=== PATIENT | female | born 1995 | race Caucasian/White ===

== ENCOUNTER 2020-01-15 15:22 | Observation (INO) | payer BC, OTHER, SELFPAY ==
[2020-01-15 15:51] VITALS: BMI 42.2
--- NOTE | 2020-01-15 15:53 | OBADM ---
This patient, Ming Martinez, admitted to the OB room OB Post 117 for observation. Patient/family oriented to hospital policies and general routines including ID bracelet, bed and alarms, visiting hours, pain management, procedures, bathroom and other care routines, personal items, smoking policy, room service/diet, call light, and visiting hours. Patient/Family are encouraged to report perceived risks to care and to ask questions if they do not understand what they are told or what they should do.
[2020-01-15 17:01] LABS: Add Urine Microscopic? YES; Appearance Urine Clear (Clear); Bilirubin Urine Negative (Negative); Blood Urine Negative (Negative); Color Urine Colorless (Yellow); Glucose Urine UA Negative (Negative); Ketones Urine Trace mg/dL (Negative); Leukocyte Esterase Ur Negative LEU/UL (Negative); Nitrate Urine Negative (Negative); Protein Urine Negative (Negative); RBC Urine 0-2 /hpf (0-2); Squamous Epithelial Cell Urine Rare /hpf (Few); Urobilinogen Urine Negative mg/dL (<2.0); WBC Urine 0-3 /hpf
[2020-01-15 17:05] LABS: Specific Grav Ur 1.003 (1.001-1.035)
--- NOTE | 2020-01-16 18:16 | PM.OBTRLD ---
OB - Triage/Final Diagnosis Evaluation Laboratory results: Laboratory Tests 01/15/20 16:53 Urine Color Colorless Urine Appearance Clear Urine pH 7.0 Ur Specific [place] 1.003 Urine Protein Negative Urine Glucose (UA) Negative Urine Ketones Trace Ur Blood (Man) Negative Urine Nitrate Negative Urine Bilirubin Negative Urine Urobilinogen Negative Leukocyte Esterase Rfl Negative Urine RBC 0-2 Urine WBC 0-3 Ur Squamous Epith Cells Rare Final Diagnosis (1) Abdominal cramping affecting , antepartum: Code(s): O26.899 - Other specified related conditions, unspecified trimester; R10.9 - Unspecified abdominal pain Status: Acute
== END 2020-01-15 17:28 | disposition home or self-care (01) ==
PROVIDERS: Admitting Provider Obstetrics & Gynecology; PCP Internal Medicine; Visit Provider Obstetrics & Gynecology
DX: O26.892 Other specified pregnancy related conditions, second trimester (principal); R10.9 Unspecified abdominal pain; Z3A.18 18 weeks gestation of pregnancy
CPT/HCPCS: 81001; 84112; G0378; G0379

== ENCOUNTER 2020-02-25 13:28 | Observation (INO) | payer BC, OTHER, SELFPAY ==
[2020-02-25 14:27] LABS: Add Urine Microscopic? YES; Appearance Urine Cloudy (Clear); Bilirubin Urine Negative (Negative); Blood Urine Negative (Negative); Color Urine Straw (Yellow); Glucose Urine UA Negative (Negative); Ketones Urine Negative (Negative); Leukocyte Esterase Ur 1+ LEU/UL (NEGATIVE); Nitrate Urine Negative (Negative); Protein Urine Negative (Negative); Specific Grav Ur 1.009 (1.001-1.035); Squamous Epithelial Cell Urine Many /hpf (Few); Urobilinogen Urine Negative mg/dL (<2.0); WBC Urine 0-3 /hpf (0-3)
[2020-02-25 14:41] VITALS: BMI 42.2
[2020-02-25 14:46] VITALS: BP 111/57; PULSE 70
[2020-02-25 15:01] VITALS: BP 112/57; PULSE 86
--- NOTE | 2020-02-26 16:24 | PM.OBTRLD ---
OB - Triage/Final Diagnosis Evaluation Laboratory results: Laboratory Tests 02/25/20 14:12 Urine Color Straw Urine Appearance Cloudy H Urine pH 6.0 Ur Specific [place] 1.009 Urine Protein Negative Urine Glucose (UA) Negative Urine Ketones Negative Ur Blood (Man) Negative Urine Nitrate Negative Urine Bilirubin Negative Urine Urobilinogen Negative Ur Leukocyte Esterase 1+ H Urine RBC 3-5 H Urine WBC 0-3 Ur Squamous Epith Cells Many H Final Diagnosis (1) Pelvic pain affecting : Code(s): O26.899 - Other specified related conditions, unspecified trimester; R10.2 - Pelvic and perineal pain Status: Acute
== END 2020-02-25 14:50 | disposition home or self-care (01) ==
LOC: ANHOBPP 13:46
PROVIDERS: Admitting Provider Obstetrics & Gynecology; PCP Internal Medicine; Visit Provider Obstetrics & Gynecology
DX: O26.892 Other specified pregnancy related conditions, second trimester (principal); R10.2 Pelvic and perineal pain; Z3A.23 23 weeks gestation of pregnancy
CPT/HCPCS: 81001; 87086; G0378; G0379

== ENCOUNTER 2020-03-03 06:44 | Observation (INO) | payer BC, OTHER, SELFPAY ==
[2020-03-03] VITALS (23 sets, daily range): BP systolic 108–138; BP diastolic 50–82; PULSE 31–120; TEMP 36.7; O2SAT 88–100; BMI 43.0
--- NOTE | ~2020-03-03 | US_ITS ---
US OB limited 03/03/2020 08:54 Indication: Vaginal bleeding. Evaluate placenta. Procedure: High-resolution Limited obstetrical ultrasound Comparison: No prior studies for comparison. Findings: There is a single living intrauterine in transverse presentation. heart rat e is 157 BPM. Amniotic fluid is subjectively normal. Placenta is anterior and covers the internal cer vical os. Cervical length is 3.8 cm. Impression: 1: Single living intrauterine in transverse presentation. 2: Placenta previa. Anterior placenta. Reviewed, dictated and finalized at location A. ET ASSISTANT Impression: 1: Single living intrauterine in transverse presentation. 2: Placenta previa. Anterior placenta.
--- NOTE | 2020-03-03 07:01 | OBADM ---
This patient, Ming Martinez, admitted to the OB room OB Post 115 for observation. Patient/family oriented to hospital policies and general routines including ID bracelet, bed and alarms, visiting hours, pain management, procedures, bathroom and other care routines, personal items, smoking policy, room service/diet, call light, and visiting hours. Patient/Family are encouraged to report perceived risks to care and to ask questions if they do not understand what they are told or what they should do.
[2020-03-03] MEDS: TERBUTALINE SULFATE 1 MG/ML VIAL 0.25 MG SUB-Q (10:18)
--- NOTE | 2020-03-09 07:17 | PM.OBTRLD ---
OB - Triage/Final Diagnosis Visit Information Comments/Additional reasons for admission: vaginal bleeding/placenta previa
== END 2020-03-03 12:25 | disposition home or self-care (01) ==
PROVIDERS: Admitting Provider Obstetrics & Gynecology; PCP Internal Medicine; Visit Provider Obstetrics & Gynecology
DX: O44.10 Complete placenta previa with hemorrhage, unspecified trimester (principal); Z3A.00 Weeks of gestation of pregnancy not specified
CPT/HCPCS: 76815; 96372; G0378; G0379; J3105

== ENCOUNTER 2020-03-13 07:33 | Observation (INO) | payer BC, SELFPAY ==
[2020-03-13 07:49] VITALS: BP 116/71; PULSE 86
[2020-03-13 08:01] VITALS: BP 117/74; PULSE 84
--- NOTE | 2020-03-13 18:32 | PM.OBTRLD ---
OB - Triage/Final Diagnosis Evaluation Vital signs: Vital Signs - 24 hr 03/13/20 07:49 03/13/20 08:01 Pulse Rate 86 84 Blood Pressure 116/71 117/74 Final Diagnosis (1) Placenta previa: Code(s): O44.00 - Complete placenta previa NOS or without hemorrhage, unspecified trimester Status: Acute
== END 2020-03-13 11:31 | disposition home or self-care (01) ==
PROVIDERS: Admitting Provider Obstetrics & Gynecology; PCP Internal Medicine; Visit Provider Obstetrics & Gynecology
DX: O44.00 Complete placenta previa NOS or without hemorrhage, unspecified trimester (principal); Z3A.00 Weeks of gestation of pregnancy not specified
CPT/HCPCS: G0378; G0379

== ENCOUNTER 2020-05-07 09:35 | Observation (INO) | payer BC, SELFPAY ==
--- NOTE | ~2020-05-07 | US_ITS ---
EXAMINATION: US OB BPP wo non-stress EXAM DATE: 05/07/2020 09:38 INDICATION: Placenta previa, gestational hypertension. Physical profile. 3rd trimester. TECHNIQUE: Pelvic obstetrical transabdominal sonogram was performed by a technologist. There are mu ltiple grayscale and Doppler images available for interpretation. Comparison is made to prior examina tion from 03/03/2020. FINDINGS: There is a single fetus identified in vertex presentation with a heart rate of 154 beats p er minute. The placenta is located in the anterior position, appears to have grown away from the inte rnal cervical os but internal cervical os, cervical canal were poorly visualized. There is no sonogra phic evidence of retroplacental hemorrhage identified. There is subjectively expected amount of amni otic fluid. BIOPHYSICAL PROFILE (performed by the technologist) breathing (30 sec sustained breathing in 30 minutes): 2 out of 2 movement (3 gross body movements in 30 minutes): 2 out of 2 tone (one episode of jxzavnz-csxlerfbw-qisweky limb movement): 2 out of 2 Amniotic fluid pocket (2 cm): 2 out of 2 Total score: 8 out of 8. IMPRESSION: 1. Single fetus with heart rate of 154 bpm. 2. Normal biophysical profile score of 8 out of 8. 3. Anteriorly located placenta. Reviewed, dictated and finalized at location A. ING METER ATTENDANT
[2020-05-07] MEDS: NIFEdipine 10 MG CAPSULE PO (09:50)
--- NOTE | 2020-05-07 17:08 | OBADM ---
This patient, Ming Martinez, admitted to the OB room Labor/Delivery/Recovery 118 for observation. Patient/family oriented to hospital policies and general routines including ID bracelet, bed and alarms, visiting hours, pain management, procedures, bathroom and other care routines, personal items, smoking policy, room service/diet, and visiting hours. Patient/Family are encouraged to report perceived risks to care and to ask questions if they do not understand what they are told or what they should do.
--- NOTE | 2020-05-17 09:42 | PM.OBTRLD ---
OB - Triage/Final Diagnosis Visit Information Comments/Additional reasons for admission: I have assessed the risk for this patient, Ming Alcantara Juan, and determined that she would benefit from observation care. Final Diagnosis (1) Vaginal bleeding during : Code(s): O46.90 - Antepartum hemorrhage, unspecified, unspecified trimester Status: Acute
== END 2020-05-07 12:40 | disposition home or self-care (01) ==
PROVIDERS: Admitting Provider Obstetrics & Gynecology; PCP Internal Medicine; Visit Provider Obstetrics & Gynecology
DX: O46.93 Antepartum hemorrhage, unspecified, third trimester (principal); Z3A.33 33 weeks gestation of pregnancy
CPT/HCPCS: 76819; A9270; G0378; G0379

== ENCOUNTER 2020-05-07 20:38 | Observation (INO) | payer BC, SELFPAY ==
[2020-05-07] VITALS (8 sets, daily range): BP systolic 116–143; BP diastolic 69–82; PULSE 93–121; TEMP 36.9
--- NOTE | 2020-05-07 20:45 | PC.NURSE ---
Pt has pad noted with apprx 1inc by 1/2 area of blood noted.
--- NOTE | 2020-05-07 20:57 | PC.NURSE ---
Addendum entered by Angel George RN 05/07/20 22:04: Dr Judge notified of pt and assessment. Coming in to see pt. Original Note:
--- NOTE | 2020-05-07 21:05 | PC.NURSE ---
Dr. Judge here.
--- NOTE | 2020-05-07 21:25 | PM.IMHP ---
H&P: HPI History of Present Illness Date/Time: 05/07/20 21:25 Chief Complaint: vaginal bleeding Narrative: Ming Martinez is a 24 yo @ 33.4wks who presented to L&D w/ her largest vaginal bleed since being diagnosed with placenta previa. She reports at 2014 she noted that the toilet was full of bright blood. She presented to L&D w/ ~7-10cc of blood on her pad as well as her upper thighs and labia. heart tones were reassuring and no active bleeding was noted. This is her 5th bleed. She has been admitted to [facility] multiple times; most recently 04/14/20 - 05/03/20. She underwent NST/BPP today and was found to be having mild contractions; did not feel them. Procardia 10mg q8h was started and they subsided. Her is complicated by: - Placenta previa w/ hemorrhage and multiple antepartum admissions; s/p 2 rounds of ANCS - GHTN - Varicella and rubella non-immune Review of Systems Constitutional: Constitutional: Denies fever(s) Eyes: Eyes: Denies blurry vision Cardiovascular: Cardiovascular: Denies chest pain and Denies palpitations Respiratory: Respiratory: Denies cough and Denies dyspnea Gastrointestinal: Gastrointestinal: Denies abdominal pain Genitourinary: Genitourinary: Reports abnormal vaginal bleeding Neurologic: Denies dizziness and Denies headache(s) Meds Home Medications and Allergies Home Medications Medication Instructions Recorded Confirmed Type nifedipine [Procardia] 10 mg PO Q8H 20 Days #60 cap 05/07/20 Rx Allergies Allergy/AdvReac Type Severity Reaction Status Date / Time No Known Allergies Allergy Unverified 08/02/18 14:33 Vital Signs Vital Signs - 24 hr 05/07/20 20:44 05/07/20 20:46 05/07/20 21:00 Pulse Rate 119 H 121 H 111 H Blood Pressure 127/76 123/72 116/69 Exam Const: General: cooperative, healthy appearing and comfortable Resp: Effort & Inspection: normal respiratory effort Cardio: Rate: regular rate : Other: ~7-10cc of blood on pad; upper thighs and labia with blood FHT's: 140's/ mod daniella/ no accels/ no decels - cat 1 TOCO: uterine irritability Skin: General skin exam: normal color Neuro: General: patient oriented x3 Psych: Appearance: grossly normal Affect: normal affect Attitude: cooperative Assessment and Plan Assessment and plan (1) Placenta previa in third trimester: Code(s): O44.03 - Complete placenta previa NOS or without hemorrhage, third trimester Status: Acute (2) Vaginal bleeding during : Code(s): O46.90 - Antepartum hemorrhage, unspecified, unspecified trimester Status: Acute (3) Gestational hypertension: Qualifiers: Trimester: third trimester Qualified Code(s): O13.3 - Gestational [-induced] hypertension without significant proteinuria, third trimester Code(s): O13.9 - Gestational [-induced] hypertension without significant proteinuria, unspecified trimester Status: Acute Additional Plan - Pt w/ 5th large bleeding; not actively bleeding, heart tones reassuring, no raina - IV placed w/ fluids running; labs sent but pending (CBC, coags, fibrinogen). Pt is Rh positive. - [facility] Maternal transport team called at 2114 -- patient presented and accepted to transfer @ 2119 - Maternal transport team to transport pt to [facility]; ETA ~30min; pt agrees to transfer. All paperwork signed. All questions answered. - Pt is s/p 2 rounds of ANCS
[2020-05-07 21:35] LABS: Basophils Absolute Auto 0.1 K/mm3 (0.0-0.1); Basophils Percent Auto 0.4 % (0.2-1.2); Eosinophils Absolute Auto 0.4 K/mm3 (0-0.3); Eosinophils Percent Auto 3.2 % (0-4.4); Hematocrit 38.6 % (37.0-47.0); Immature Granulocyte Percent A 0.9 % (0-0.5); Lymphocytes Absolute Auto 2.81 K/mm3 (0.9-3.2); Lymphocytes Percent Auto 24.4 % (18.3-44.2); Mean Corpuscular HGB Conc 33.7 g/dl (32-36); Mean Corpuscular Hemoglobin 31.2 pg (26-34); Mean Corpuscular Volume 92.6 fl (80-100); Mean Platelet Volume 10.9 fl (7.4-10.4); Monocytes Absolute Auto 0.9 K/mm3 (0.1-0.6); Monocytes Percent Auto 7.5 % (2.6-8.5); Neutrophils Absolute Auto 7.3 K/mm3 (1.3-6.7); Neutrophils Percent Auto 63.6 % (45.5-73.1); Platelet Count Result 235 k/mm3 (150-375); Red Blood Count 4.17 M/mm3 (4.2-5.4); Red Cell Distribution Width 13.2 % (11.5-14.5); White Blood Count 11.5 K/mm3 (4.5-10.0)
--- NOTE | 2020-05-07 21:40 | WPDHPUPDATE1 ---
History and Physical Update Update Date/Time: 05/07/20 21:40 History and Physical has been reviewed, including an updated exam of the patient. There are NO changes in the patient's condition. Risks, benefits, and alternatives have been discussed and questions answered. Patient agrees to proceed with procedure.
[2020-05-07] MEDS: LACTATED RINGERS 1,000 ML 125 ML IV CONT (21:49)
[2020-05-07 21:56] LABS: Fibrinogen 368 mg/dl (215-510); INR 0.9; Partial Thromboplastin Time 29.3 SECONDS (22.3-36.8); Prothrombin Time 12.5 Seconds (11.1-14.7)
[2020-05-07 21:58] LABS: D Dimer 0.92 ug/mL (<0.48)
--- NOTE | 2020-05-07 21:59 | OBADM ---
This patient, Ming Martinez, admitted to the OB room OB Post 117 for observation. Patient/family oriented to hospital policies and general routines including ID bracelet, bed and alarms, visiting hours, pain management, procedures, bathroom and other care routines, personal items, smoking policy, room service/diet, and visiting hours. Patient/Family are encouraged to report perceived risks to care and to ask questions if they do not understand what they are told or what they should do.
--- NOTE | 2020-05-07 22:02 | PC.NURSE ---
Addendum entered by Angel George RN 05/07/20 22:03: TIME NOTE 2039 Original Note: Patient has hx of placenta previa. Discharged from [facility] this week after 6 week stay. Pt noted bright red vaginal bleeding approx 10 minutes ago while using bathroom.
--- NOTE | 2020-05-07 22:10 | PC.NURSE ---
To [place] per transport team. Report to [facility] at [phone]
== END 2020-05-07 22:10 | disposition short-term general hospital (02) ==
PROVIDERS: Admitting Provider Obstetrics & Gynecology; PCP Internal Medicine; Visit Provider Obstetrics & Gynecology
DX: O44.13 Complete placenta previa with hemorrhage, third trimester (principal); O13.3 Gestational [pregnancy-induced] hypertension without significant proteinuria, third trimester; Z3A.33 33 weeks gestation of pregnancy
CPT/HCPCS: 36415; 85025; 85380; 85384; 85610; 85730; G0378; G0379; J7120

== ENCOUNTER 2020-05-14 07:17 | Outpatient (RCR) | payer BC, SELFPAY ==
[2020-05-10 09:36] VITALS: BP 125/69; PULSE 78
--- NOTE | ~2020-05-14 | US_ITS ---
EXAMINATION: US OB BPP wo non-stress EXAM DATE: 05/10/2020 08:45 INDICATION: Nonreactive stress test. 3rd trimester. TECHNIQUE: Pelvic obstetrical transabdominal sonogram was performed by a technologist. There are mu ltiple grayscale and Doppler images available for interpretation. There are no earlier studies of th is gestation for comparison. FINDINGS: There is a single fetus identified in vertex presentation with a heart rate of 152 beats pe r minute. The placenta is located in the anterior position. There is no sonographic evidence of retr oplacental hemorrhage identified. BIOPHYSICAL PROFILE (performed by the technologist) breathing (30 sec sustained breathing in 30 minutes): 2 out of 2 movement (3 gross body movements in 30 minutes): 2 out of 2 tone (one episode of rgiqyvs-dnwlzghnp-rasbxqr limb movement): 2 out of 2 Amniotic fluid pocket (2 cm): 2 out of 2 Total score: 8 out of 8 IMPRESSION: 1. Single fetus with heart rate of 152 bpm. 2. Normal biophysical profile score of 8 out of 8. Reviewed, dictated and finalized at location B. TENANCE CARPENTER
--- NOTE | ~2020-05-14 | US_ITS ---
US OB BPP wo non-stress DATE: 05/14/2020 08:34 INDICATION: Nonreactive stress test TECHNIQUE: Real-time imaging and Doppler analysis COMPARISON: May 10, 2020 obstetrical ultrasound with biophysical profile FINDINGS: Life limited due to stage, fetus in vertex presentation, longitudinal lie. Anterior placenta heart rate of 157 bpm. No retroplacental hemorrhage is noted. A 5 cm deep amniotic fluid pocket is identified in the right lower quadrant. Subjectively low or low normal amniotic fluid volume is suggested on the provided images. BIOPHYSICAL PROFILE reported by refresh technician: breathin out of 2 movement: 2 out of 2 tone: 2 out of 2 Amniotic fluid pocket: 2 out of 2 Total score: 8 out of 8 IMPRESSION: Normal biophysical profile score of 8 out of 8 Subjectively low or low normal amniotic fluid volume is suggested. Reviewed, dictated and finalized at Location A. Reviewed, dictated and finalized at location A. PLANT SPECIALIST
== END 2020-06-22 07:58 | disposition home or self-care (01) ==
LOC: ANHOBOP 07:17
PROVIDERS: PCP Internal Medicine; Visit Provider Obstetrics & Gynecology
DX: O16.3 Unspecified maternal hypertension, third trimester (principal); O44.03 Complete placenta previa NOS or without hemorrhage, third trimester; Z3A.34 34 weeks gestation of pregnancy
CPT/HCPCS: 59025; 76819

== ENCOUNTER 2020-05-16 16:48 | Observation (INO) | payer BC, SELFPAY ==
[2020-05-16] VITALS (97 sets, daily range): BP systolic 116–159; BP diastolic 64–97; PULSE 73–141; RESP 24; TEMP 36.5–36.8; O2SAT 94–100; BMI 45.2
--- NOTE | ~2020-05-16 | US_ITS ---
EXAMINATION: US OB BPP wo non-stress DATE: 05/17/2020 08:07 INDICATION: Placenta previa. TECHNIQUE: Real-time pelvic ultrasound was performed. COMPARISON: Ultrasound 05/14/2020 FINDINGS: There is a single living fetus in vertex presentation. The placenta is anterior. There was no placen ta previa on the prior ultrasound. heart rate is 155 beats per minute (bpm). Biophysical profile performed by the technologist: breathing (30 sec sustained breathing in 30 minutes): 2 out of 2 movement (3 gross body movements in 30 minutes): 2 out of 2 tone (one episode of udsaxhc-xcdrzejil-uyrqvju limb movement): 2 out of 2 Amniotic fluid pocket (2 cm): 2 out of 2 Total score: 8 out of 8 IMPRESSION: 1. Single living fetus in vertex presentation. 2. Biophysical profile 8 out of 8. Reviewed, dictated and finalized at location A. ENT SERVICES ADVISOR
[2020-05-16] MEDS: LACTATED RINGERS 1,000 ML 100 ML IV CONT (18:50)
--- NOTE | 2020-05-16 18:50 | OBADM ---
This patient, Ming Martinez, admitted to the OB room Labor/Delivery/Recovery 119 for observation. Patient/family oriented to hospital policies and general routines including ID bracelet, bed and alarms, visiting hours, pain management, procedures, bathroom and other care routines, personal items, smoking policy, room service/diet, and visiting hours. Patient/Family are encouraged to report perceived risks to care and to ask questions if they do not understand what they are told or what they should do.
[2020-05-16 19:22] LABS: Basophils Absolute Auto 0.1 K/mm3 (0.0-0.1); Basophils Percent Auto 0.4 % (0.2-1.2); Eosinophils Absolute Auto 0.5 K/mm3 (0-0.3); Eosinophils Percent Auto 2.8 % (0-4.4); Hematocrit 39.1 % (37.0-47.0); Hemoglobin 13.1 g/dL (12.0-15.0); Immature Granulocyte Absolute 0.11 K/mm3 (0.00-0.031); Immature Granulocyte Percent A 0.7 % (0-0.5); Lymphocytes Absolute Auto 2.86 K/mm3 (0.9-3.2); Lymphocytes Percent Auto 17.3 % (18.3-44.2); Mean Corpuscular HGB Conc 33.5 g/dl (32-36); Mean Corpuscular Hemoglobin 31.1 pg (26-34); Mean Corpuscular Volume 92.9 fl (80-100); Mean Platelet Volume 11.7 fl (7.4-10.4); Monocytes Absolute Auto 0.9 K/mm3 (0.1-0.6); Monocytes Percent Auto 5.4 % (2.6-8.5); Neutrophils Absolute Auto 12.1 K/mm3 (1.3-6.7); Neutrophils Percent Auto 73.4 % (45.5-73.1); Platelet Count Result 231 k/mm3 (150-375); Red Blood Count 4.21 M/mm3 (4.2-5.4); Red Cell Distribution Width 13.4 % (11.5-14.5); White Blood Count 16.5 K/mm3 (4.5-10.0)
[2020-05-16] MEDS: ALBUTEROL SULFATE (*SP) AEROSOL 1 PUFF 2 PUFF INHALATION (19:24)
--- NOTE | 2020-05-16 20:04 | PM.OBTRLD ---
OB - Triage/Final Diagnosis Visit Information Comments/Additional reasons for admission: I have assessed the risk for this patient, Ming Martinez, and determined that she would benefit from observation care. 24yo at 34w6d Initially presented to triage with leaking of fluid with coughs. Negative ROM+. Was noted to be contacting. Every 2-3 minutes, described as 4-5/10 on pain scale. has been complicated with vaginal bleeding and placenta previa. Last US on 05/04 showed that placenta previa had resolved. Last bleeding episode was 05/07. She was hospitalized at [facility] 05/07-05/09. Cervix was 2-3cm per patient. Today, bedside transabdominal US shows anterior placenta. Cervical exam . FHR monitoring shows baseline of 150, moderate variability, occasional variable decels but overall reassuring. Contractions every 3 minutes. Will keep overnight for monitoring. Evaluation Laboratory results: Laboratory Tests 05/16/20 18:41 WBC 16.5 H RBC 4.21 Hgb 13.1 Hct 39.1 MCV 92.9 MCH 31.1 MCHC 33.5 RDW 13.4 Plt Count 231 MPV 11.7 H Immature Gran % (Auto) 0.7 H Neut % (Auto) 73.4 H Lymph % (Auto) 17.3 L [place] % (Auto) 5.4 Eos % (Auto) 2.8 Baso % (Auto) 0.4 Lymph # (Auto) 2.86 [place] # (Auto) 0.9 H Eos # (Auto) 0.5 H Baso # (Auto) 0.1 Abs Immat Gran (auto) 0.11 H Absolute Neuts (auto) 12.1 H Absolute Nucleated RBC 0.0 Nucleated RBC % 0.0 Vital signs: Vital Signs - 24 hr 05/16/20 17:11 05/16/20 17:16 05/16/20 17:31 Temperature Pulse Rate 128 H 120 H 114 H Blood Pressure 153/97 H 154/83 H 131/72 Pulse Oximetry 05/16/20 17:37 05/16/20 17:42 05/16/20 17:46 Temperature Pulse Rate 112 H Blood Pressure 147/83 H Pulse Oximetry 98 97 05/16/20 17:47 05/16/20 17:52 05/16/20 17:57 Temperature Pulse Rate Blood Pressure Pulse Oximetry 100 100 98 05/16/20 18:00 05/16/20 18:01 05/16/20 18:02 Temperature 36.8 C Pulse Rate 101 H Blood Pressure 159/82 H Pulse Oximetry 97 05/16/20 18:07 05/16/20 18:12 05/16/20 18:17 Temperature Pulse Rate Blood Pressure Pulse Oximetry 98 98 96 05/16/20 18:22 05/16/20 18:27 05/16/20 18:32 Temperature Pulse Rate Blood Pressure Pulse Oximetry 98 98 98 05/16/20 18:34 05/16/20 18:39 05/16/20 18:53 Temperature Pulse Rate Blood Pressure Pulse Oximetry 97 98 95 05/16/20 18:54 05/16/20 18:58 05/16/20 19:01 Temperature Pulse Rate 131 H 123 H Blood Pressure 138/68 130/74 Pulse Oximetry 96 05/16/20 19:03 05/16/20 19:08 05/16/20 19:13 Temperature Pulse Rate Blood Pressure Pulse Oximetry 95 95 97 05/16/20 19:16 05/16/20 19:18 05/16/20 19:23 Temperature Pulse Rate 112 H Blood Pressure 133/90 Pulse Oximetry 96 94 05/16/20 19:28 05/16/20 19:31 05/16/20 19:33 Temperature Pulse Rate 113 H Blood Pressure 142/83 H Pulse Oximetry 100 97 05/16/20 19:38 05/16/20 19:43 05/16/20 19:46 Temperature Pulse Rate 125 H Blood Pressure 143/86 H Pulse Oximetry 95 97 05/16/20 19:48 05/16/20 19:53 05/16/20 19:58 Temperature Pulse Rate Blood Pressure Pulse Oximetry 96 96 98 05/16/20 20:01 05/16/20 20:03 Temperature Pulse Rate 119 H Blood Pressure 141/72 H Pulse Oximetry 98 Final Diagnosis (1) Gestational hypertension: Qualifiers: Trimester: third trimester Qualified Code(s): O13.3 - Gestational [-induced] hypertension without significant proteinuria, third trimester Code(s): O13.9 - Gestational [-induced] hypertension without significant proteinuria, unspecified trimester Status: Acute (2) contractions: Code(s): O47.9 - False labor, unspecified Status: Acute
[2020-05-16 20:10] LABS: HIV 1/2 Ab P24 Ag Result Negative (Negative)
[2020-05-16] MEDS: FAMOTIDINE 20 MG TABLET PO (22:16)
[2020-05-16] MEDS: ALBUTEROL SULFATE NEB 2.5 MG/0.5 ML INH INHALATION (23:25)
[2020-05-17] VITALS (95 sets, daily range): BP systolic 108–126; BP diastolic 48–82; PULSE 51–124; RESP 20; TEMP 36.1; O2SAT 92–100
[2020-05-17] MEDS: LACTATED RINGERS 1,000 ML 100 ML IV CONT (00:35)
[2020-05-17] MEDS: ALBUTEROL SULFATE NEB 2.5 MG/0.5 ML INH INHALATION (08:40)
[2020-05-17 09:12] LABS: Rapid Plasma Reagin Non-Reactive (NonReactive)
[2020-05-17 18:28] LABS: SARS-CoV-2 RNA PCR Negative
== END 2020-05-17 09:14 | disposition home or self-care (01) ==
LOC: ANHLDR 16:53 → ANHOBPP 20:07
PROVIDERS: Admitting Provider Obstetrics & Gynecology; PCP Internal Medicine; Visit Provider Obstetrics & Gynecology
DX: O13.3 Gestational [pregnancy-induced] hypertension without significant proteinuria, third trimester (principal); O47.9 False labor, unspecified; Z3A.34 34 weeks gestation of pregnancy; Z20.822 Contact with and (suspected) exposure to COVID-19
CPT/HCPCS: 36415; 76819; 84112; 85025; 86592; 86703; 86850; 86900; 86901; 94640; 96360; 96361; A9270; C9803; G0378; G0379; G0432; J7120; U0003; U0005

== ENCOUNTER 2020-05-19 09:07 | Inpatient (IN) | payer BC, SELFPAY ==
[2020-05-19] VITALS (57 sets, daily range): BP systolic 99–147; BP diastolic 17–97; PULSE 46–113; RESP 11–21; TEMP 36.1–36.4; O2SAT 88–100; BMI 44.7
[2020-05-19 09:54] LABS: Basophils Absolute Auto 0.1 K/mm3 (0.0-0.1); Basophils Percent Auto 0.5 % (0.2-1.2); Eosinophils Absolute Auto 0.6 K/mm3 (0-0.3); Eosinophils Percent Auto 5.5 % (0-4.4); Hemoglobin 13.3 g/dL (12.0-15.0); Immature Granulocyte Absolute 0.11 K/mm3 (0.00-0.031); Immature Granulocyte Percent A 0.9 % (0-0.5); Lymphocytes Absolute Auto 2.47 K/mm3 (0.9-3.2); Lymphocytes Percent Auto 21.3 % (18.3-44.2); Mean Corpuscular HGB Conc 33.3 g/dl (32-36); Mean Corpuscular Hemoglobin 30.9 pg (26-34); Mean Platelet Volume 11.1 fl (7.4-10.4); Monocytes Absolute Auto 0.8 K/mm3 (0.1-0.6); Monocytes Percent Auto 6.6 % (2.6-8.5); Neutrophils Absolute Auto 7.6 K/mm3 (1.3-6.7); Neutrophils Percent Auto 65.2 % (45.5-73.1); Platelet Count Result 211 k/mm3 (150-375); Red Cell Distribution Width 13.5 % (11.5-14.5); White Blood Count 11.6 K/mm3 (4.5-10.0)
[2020-05-19] MEDS: LACTATED RINGERS 1,000 ML 125 ML IV CONT (09:56)
[2020-05-19 10:05] LABS: Uric Acid 4.6 mg/dL (2.5-7.5)
[2020-05-19 10:51] LABS: Alanine Aminotransferase 36 U/L (4-35); Albumin Level 3.6 g/dL (3.5-5.1); Alkaline Phosphatase 222 U/L (38-126); Anion Gap 5 mmol/L (8-16); Aspartate Amino Transferase 37 U/L (14-36); Bilirubin,Total 0.2 mg/dL (0.2-1.3); Blood Urea Nitrogen 4 mg/dL (7-17); Calcium 8.9 mg/dL (8.4-10.2); Carbon Dioxide 23 mmol/L (22-30); Chloride 109 mmol/L (98-107); Estimated CRCL calculation 159 ml/min; Estimated Glomerular Filt Rate > 60; Glucose 88 mg/dL (65-105); Potassium 3.6 mmol/L (3.4-5.0); Sodium 137 mmol/L (137-145)
[2020-05-19 12:09] LABS: Rapid Plasma Reagin Non-Reactive (NonReactive)
--- NOTE | 2020-05-19 12:18 | WPDANESEPPF ---
Anes - Initial Pre Proc Eval Procedure: Operation Date: 05/19/20 12:30 Proposed Procedures p Primary Section - Marianela Judge MD Date/Time: 05/19/20 12:18 Surgeon: Marianela Judge MD Pre Op Diagnosis: Section Patient Data Age: 24 Gender: F Height: 1.52 m Weight: 104 kg Last Vital Signs Pulse 101 H 05/19/20 10:46 BP 116/68 05/19/20 10:46 Allergies Allergy/AdvReac Type Severity Reaction Status Date / Time No Known Allergies Allergy Unverified 08/02/18 14:33 Home Medications Medication Instructions Recorded Confirmed Type famotidine 20 mg PO BID 05/16/20 05/19/20 History ferrous sulfate 27 mg PO DAILY 05/16/20 05/19/20 History prenat.vits,hima,ips-czlx-mbzet 1 tablet PO DAILY 05/16/20 05/19/20 History albuterol sulfate [Proventil HFA] 2 puff INHALATION Q6HRT PRN #1 inh 05/17/20 05/19/20 Rx Laboratory Tests 05/19/20 05/19/20 05/19/20 09:47 09:47 09:47 WBC 11.6 K/mm3 H K/mm3 (4.5-10.0) RBC 4.30 M/mm3 M/mm3 (4.2-5.4) Hgb 13.3 g/dL g/dL (12.0-15.0) Hct 40.0 % % (37.0-47.0) MCV 93.0 fl fl (80-100) MCH 30.9 pg pg (26-34) MCHC 33.3 g/dl g/dl (32-36) RDW 13.5 % % (11.5-14.5) Plt Count 211 k/mm3 k/mm3 (150-375) MPV 11.1 fl H fl (7.4-10.4) Immature Gran % (Auto) 0.9 % H % (0-0.5) Neut % (Auto) 65.2 % % (45.5-73.1) Lymph % (Auto) 21.3 % % (18.3-44.2) [place] % (Auto) 6.6 % % (2.6-8.5) Eos % (Auto) 5.5 % H % (0-4.4) Baso % (Auto) 0.5 % % (0.2-1.2) Lymph # (Auto) 2.47 K/mm3 K/mm3 (0.9-3.2) [place] # (Auto) 0.8 K/mm3 H K/mm3 (0.1-0.6) Eos # (Auto) 0.6 K/mm3 H K/mm3 (0-0.3) Baso # (Auto) 0.1 K/mm3 K/mm3 (0.0-0.1) Abs Immat Gran (auto) 0.11 K/mm3 H K/mm3 (0.00-0.031) Absolute Neuts (auto) 7.6 K/mm3 H K/mm3 (1.3-6.7) Absolute Nucleated RBC 0.0 K/mm3 K/mm3 (0.0-0.012) Nucleated RBC % 0.0 % % (0.0-0.2) Sodium 137 mmol/L mmol/L (137-145) Potassium 3.6 mmol/L mmol/L (3.4-5.0) Chloride 109 mmol/L H mmol/L (98-107) Carbon Dioxide 23 mmol/L mmol/L (22-30) Anion Gap 5 mmol/L L mmol/L (8-16) BUN 4 mg/dL L mg/dL (7-17) Creatinine 0.50 mg/dL L mg/dL (0.7-1.0) Estim Creat Clear Calc 159 ml/min ml/min Estimated GFR > 60 (59 - ) Glucose 88 mg/dL mg/dL (65-105) Uric Acid Calcium 8.9 mg/dL mg/dL (8.4-10.2) Total Bilirubin 0.2 mg/dL mg/dL (0.2-1.3) AST 37 U/L H U/L (14-36) ALT 36 U/L H U/L (4-35) Alkaline Phosphatase 222 U/L H U/L (38-126) Total Protein 7.0 g/dL g/dL (6.3-8.2) Albumin 3.6 g/dL g/dL (3.5-5.1) RPR Non-reactive (NonReactive) 05/19/20 09:47 WBC RBC Hgb Hct MCV MCH MCHC RDW Plt Count MPV Immature Gran % (Auto) Neut % (Auto) Lymph % (Auto) [place] % (Auto) Eos % (Auto) Baso % (Auto) Lymph # (Auto) [place] # (Auto) Eos # (Auto) Baso # (Auto) Abs Immat Gran (auto) Absolute Neuts (auto) Absolute Nucleated RBC Nucleated RBC % Sodium Potassium Chloride Carbon Dioxide Anion Gap BUN Creatinine Estim Creat Clear Calc Estimated GFR Glucose Uric Acid 4.6 mg/dL mg/dL (2.5-7.5) Calcium Total Bilirubin AST ALT Alkaline Phosphatase Total Protein Albumin RPR Patient hx anesthesia problems: none Family hx anesthesia problems: none [facility] Past Medical History Medical History (Updated 05/19/20 @ 12:22 by Anusha Padilla
--- NOTE | 2020-05-19 12:38 | PM.IMHP ---
H&P: HPI History of Present Illness Date/Time: 05/19/20 09:47 Chief Complaint: vaginal bleeding Narrative: Ming Martinez is a 24 yo @ 35.2wks (DANIEL [birth year]) who presented to clinic for routine care with complaints of passage of a blood clot the size of a golf ball, contractions, and was also found to be hypertensive (138/98). She has had a complicated with placenta previa and hemorrhage x7-9 times. She has had two prolonged admissions to [facility] and two other observational visits. She has had ANCS x2 courses, magnesium and NICU consult. She was observed last week due to contractions and decels. On the monitor, she is noted to have mild variables as well. She has been also under going testing due to GHTN. Her most recent transabdominal US from [facility] thought the placenta has possibly moved; however, pt has had 3 additional bleeds (another US showed it was gone, then the following US showed it was still present, then gone-- but no transvaginal US's have been performed since). complicated by: - Placenta previa with multiple hemorrhages - Gestational hypertension - Mild intermittent asthma - GERD on pepcid Review of Systems Constitutional: Constitutional: Denies fatigue and Denies fever(s) Eyes: Eyes: Denies blurry vision and Denies floaters ENT: Denies dizziness and Denies headache(s) Cardiovascular: Cardiovascular: Denies chest pain and Denies rapid heart rate Respiratory: Respiratory: Denies cough and Denies dyspnea Gastrointestinal: Gastrointestinal: Reports abdominal pain, Denies nausea and Denies vomiting Genitourinary: Genitourinary: Reports abnormal vaginal bleeding Musculoskeletal: Musculoskeletal: Reports arthralgias Neurologic: Denies headache(s) Psychiatric: Psychiatric: Denies anxiety [facility] Past Medical History Medical History (Updated 05/19/20 @ 12:22 by Papa Turner MD) Asthma heart deceleration PIH ( induced hypertension) Placenta previa in third trimester contractions Family History Family History Other No pertinent family history Social History Social History Smoking status: Never smoker Second hand tobacco smoke exposure: No Substance use: never Gender identity (if verbalized by the patient): Female Sexual Orientation (if Verbalized by the Patient): Straight or Heterosexual Spiritual care concerns: No Meds Home Medications and Allergies Home Medications Medication Instructions Recorded Confirmed Type famotidine 20 mg PO BID 05/16/20 05/19/20 History ferrous sulfate 27 mg PO DAILY 05/16/20 05/19/20 History prenat.vits,hima,rxh-lpdq-lsyys 1 tablet PO DAILY 05/16/20 05/19/20 History albuterol sulfate [Proventil HFA] 2 puff INHALATION Q6HRT PRN #1 inh 05/17/20 05/19/20 Rx Allergies Allergy/AdvReac Type Severity Reaction Status Date / Time No Known Allergies Allergy Unverified 08/02/18 14:33 Exam Const: General: cooperative, healthy appearing, comfortable and no acute distress Resp: Effort & Inspection: normal respiratory effort and able to speak in complete sentences Cardio: Rate: regular rate GI: GI Palp: Yes Soft to palpation and No Tenderness to palpation present (GI) : Other: FHT's: 150's/ min to mod daniella/ no accels/ occasional mild variable decels - cat 2 TOCO: contractions q2-4 min small amount of blood noted Skin: General skin exam: normal color Neuro: General: patient oriented x3 Extrem: General: normal to inspection Psych: Appearance: grossly normal Affect: normal affect Attitude: cooperative Assessment and Plan Assessment and plan (1) Gestational hypertension: Qualifiers: Trimester: third trimester Qualified Code(s): O13.3 - Gestational [-induced] hypertension without significant proteinuria, third trimester
--- NOTE | 2020-05-19 12:39 | WPDHPUPDATE1 ---
History and Physical Update Update Date/Time: 05/19/20 12:39 History and Physical has been reviewed, including an updated exam of the patient. There are NO changes in the patient's condition. Risks, benefits, and alternatives have been discussed and questions answered. Patient agrees to proceed with procedure.
[2020-05-19] MEDS: ceFAZolin 2 GM/D5W 50 ML 2 GM/50 ML BAG IVPB (13:08)
--- NOTE | 2020-05-19 14:30 | PM.OBPRVD ---
OB - Delivery Note Procedure Delivery date: 05/19/20 Procedure: Procedures Operation Date: 05/19/20 12:30 <No data on this case meets the specified criteria> events: Induced HTN (placenta previa with hemorrhage) Induction method: none Delivery monitor: external FHT and external uterine Route of delivery: Quantitative Blood Loss (ml): 800 Anesthesia type: Spinal Disposition: PACU Narrative: She was counseled on all risks and benefits in detail. She was taken to the operating room where spinal epidural was placed. She was then prepped and draped in the normal sterile fashion. She received 2g Ancef and a time out was performed. A Pfannenstiel incision was made in the skin and carried down to the underlying fascia. The fascia was nicked on either side of the midline and the fascial incision was extended laterally and superiorly. The fascia was then elevated and the underlying rectus muscles were dissected off the fascia, superiorly and inferiorly. The rectus muscles were then in the midline and the peritoneum was entered bluntly. Once adequate exposure was obtained, a Mobix self retractor was placed within the abdomen. A bladder flap was created. A low transverse incision was made on the lower uterine segment and clear fluid was noted. The occiput was brought to the hysterotomy and the head was easily delivered. The shoulder and body then followed without complications. The fetus had spontaneous cry and the mouth and nose were bulb suctioned. The cord was clamped and cut and the fetus was handed off to the awaiting pediatric nurse. A segment of the cord was collected for cord gases. The remaining cord blood was collected for typing. With pitocin infusing, the placenta delivered with gentle traction on the cord without complications. The uterus was then cleared out of all clots and debris using a clean, moist lap. The hysterotomy was then repaired in a interlocking fashion using 0 Vicryl. A second layer imbricating suture was then made using 0 Vicryl. An additional figure of eight stitch using 0 Vicryl was placed on the left edge of the hysterotomy. The hysterotomy was then found to be hemostatic and good uterine tone was noted. The bilateral adnexa were examined and found to be normal. The pelvis was cleared of all clots and fluid. The Mobix retractor was removed from the abdomen. The peritoneum, muscle, and fascia were examined and made hemostatic with bovie cautery. The fascia was then repaired using two separate 0 Vicryl sutures in a running fashion. The subcutaneous tissue was then irrigated and made hemostatic with bovie cautery. The subcutaneous tissue was then reapproximated using 2-0 Vicryl. The skin was then closed using 4-0 Monocryl in a running subcuticular fashion. Sponge, lap, needle and instrument counts were correct at the end of the procedure x2. The patient tolerated the procedure well and was taken to recovery in a stable condition. The placenta was examined and noted to have an edge of atrophied placenta ~ 1-2 inches below the hysterotomy incision noted in the placenta; confirming that the placenta previa was still present but the edge covering the cervix had atrophied (placenta edge was noted to be yellow/brown in color). [place] Baby Date of : 05/19/20 Time of : 13:47 Weeks of gestation at delivery: 35 gender: Female Weight (pounds): 5 Weight (ounces): 3 presentation: vertex position: Left Occiput Anterior Placenta delivery description: Expressed cord vessel description: 3 Vessels, Nuchal Cord, Loose and Reduced score one minute: 8 score five minutes: 9
[2020-05-19] MEDS: diphenhydrAMINE HCl INJ 50 MG/ML VIAL 12.5 MG IV PUSH (15:38)
[2020-05-19] MEDS: OXYTOCIN 30 UNITS/NS 500 ML 30 UNITS/500 ML BAG 125 UNITS IV CONT (16:14)
[2020-05-19] MEDS: ALBUTEROL SULFATE NEB 2.5 MG/3 ML INH 1.25 MG INHALATION (16:33)
--- NOTE | 2020-05-19 16:58 | PC.NURSE ---
Patient transferred to post room # 286 per stretcher. Support person present. Oriented to unit, room, information board, rooming in, admission packet and security measures. Patient verbalizes understanding.
[2020-05-19] MEDS: FAMOTIDINE 20 MG TABLET PO (19:29)
[2020-05-19] MEDS: HYDROcodone/acetaminophen (*CRX) 5-325 MG TABLET 1 TAB PO (19:29)
[2020-05-19] MEDS: KETOROLAC 30 MG/ML VIAL (*BKC) IV PUSH (19:30)
[2020-05-20] VITALS: BP 93/49; PULSE 92; RESP 16; TEMP 36.7; O2SAT 97
[2020-05-20 04:30] VITALS: BP 117/71; PULSE 69; RESP 16; TEMP 36.3; O2SAT 100
[2020-05-20] MEDS: KETOROLAC 30 MG/ML VIAL (*BKC) IV PUSH (04:36)
[2020-05-20] MEDS: HYDROcodone/acetaminophen (*CRX) 5-325 MG TABLET 1 TAB PO ×2 (04:37→22:20)
[2020-05-20 06:49] LABS: Alanine Aminotransferase 30 U/L (4-35); Albumin Level 2.7 g/dL (3.5-5.1); Alkaline Phosphatase 171 U/L (38-126); Anion Gap 3 mmol/L (8-16); Aspartate Amino Transferase 52 U/L (14-36); Bilirubin,Total 0.4 mg/dL (0.2-1.3); Blood Urea Nitrogen 4 mg/dL (7-17); Calcium 8.5 mg/dL (8.4-10.2); Carbon Dioxide 23 mmol/L (22-30); Chloride 111 mmol/L (98-107); Estimated CRCL calculation 159 ml/min; Estimated Glomerular Filt Rate > 60; Glucose 95 mg/dL (65-105); Potassium 4.2 mmol/L (3.4-5.0); Sodium 137 mmol/L (137-145)
[2020-05-20 07:15] VITALS: BP 111/63; PULSE 85; RESP 16; TEMP 36.7; O2SAT 100
--- NOTE | 2020-05-20 08:08 | PC.NURSE ---
Dr. Judge called in to check on patient, orders received to cancel Total protien and creatinine clearance
[2020-05-20] MEDS: DOCUSATE SODIUM 100 MG CAPSULE PO ×2 (08:34→15:39)
[2020-05-20] MEDS: FAMOTIDINE 20 MG TABLET PO ×2 (08:34→15:38)
[2020-05-20] MEDS: MULTIVIT/MIN/PREN/FOL AC/IRON TABLET 1 TAB PO (08:34)
[2020-05-20 08:57] LABS: Basophils Absolute Auto 0.1 K/mm3 (0.0-0.1); Basophils Percent Auto 0.6 % (0.2-1.2); Eosinophils Absolute Auto 0.5 K/mm3 (0-0.3); Eosinophils Percent Auto 3.9 % (0-4.4); Hematocrit 34.2 % (37.0-47.0); Hemoglobin 11.1 g/dL (12.0-15.0); Immature Granulocyte Absolute 0.09 K/mm3 (0.00-0.031); Immature Granulocyte Percent A 0.7 % (0-0.5); Lymphocytes Absolute Auto 2.85 K/mm3 (0.9-3.2); Lymphocytes Percent Auto 20.7 % (18.3-44.2); Mean Corpuscular HGB Conc 32.5 g/dl (32-36); Mean Corpuscular Hemoglobin 30.1 pg (26-34); Mean Corpuscular Volume 92.7 fl (80-100); Mean Platelet Volume 11.1 fl (7.4-10.4); Monocytes Absolute Auto 0.9 K/mm3 (0.1-0.6); Monocytes Percent Auto 6.8 % (2.6-8.5); Neutrophils Absolute Auto 9.3 K/mm3 (1.3-6.7); Neutrophils Percent Auto 67.3 % (45.5-73.1); Platelet Count Result 199 k/mm3 (150-375); Red Blood Count 3.69 M/mm3 (4.2-5.4); Red Cell Distribution Width 13.6 % (11.5-14.5); White Blood Count 13.8 K/mm3 (4.5-10.0)
--- NOTE | 2020-05-20 09:13 | PC.NURSE ---
0845 Breast feeding note; Last evening, by pt's request, she was set up with breast pump, but then chose to not start pumping. Pt has been encouraged this morning by her nurse, to start pumping, and importance of pumping soon, and consistently. I visited with mother;she reports pumping with her first baby, and even with regular pumping, her milk production dropped at 2 weeks. She reports negative hx for Thyroid issues, and infertility. States she does want to try pumping again, and LC again, reinforced importance of starting pumping now, and consistent pumping at each of baby's feedings. She did agree to pump during my visit. Assessed mother's comfort with 24mm flanges. Reviewed use of colostrum as nipple care, and that we would use any breast milk collected as supplement for baby. Mother has Mom Baby Guide; breast feeding pages flagged, including LC contact information for home use. Mother given pumping log to record her pumping sessions, and volume collected. Mother attentive and voiced understanding of all information shared.
--- NOTE | 2020-05-20 09:30 | WPDANLDPN2 ---
Anes-Prog Note L&D Date/Time: 05/20/20 09:30 Comfortable throughout: section Neuraxial method: spinal Epidural/Spinal procedure site: clean & non-tender Neuro status: Neuro function grossly intact. Cardiovascular status: normal Respiratory status: normal Airway patency: baseline Mental status: baseline Post-Op hydration status: normal Vital Signs: Last Vital Signs Temp 36.7 C 05/20/20 07:15 Pulse 85 05/20/20 07:15 Resp 16 05/20/20 07:15 BP 111/63 05/20/20 07:15 Pulse Ox 100 05/20/20 07:15 Pain score (VAS): 3 I/O: Intake & Output 05/19/20 05/20/20 05/20/20 23:59 07:59 15:59 Intake Total 200 1300 Output Total 892 1950 Balance -692 -650 Post-procedural complaints: none Patient feedback: Patient satisfied with anesthetic care.
--- NOTE | 2020-05-20 09:30 | WPDANLDNPN2 ---
Anes-Prog Note L&D-Neuraxial Date/Time: 05/20/20 09:30 Neuraxial medications: intrathecal PF morphine Opiod-related complaints: none Patient feedback: Patient satisfied with post-operative pain management.
[2020-05-20] MEDS: ACETAMINOPHEN 325 MG TABLET 650 MG PO (11:42)
--- NOTE | 2020-05-20 11:44 | PC.NURSE ---
Patient complains of headache, denies blurred vision or epigastric pain at this time. She feels the headache is due to the food she ate for lunch, she had a large meal from a fast food restaurant outside the hospital
[2020-05-20 11:55] VITALS: BP 134/67; PULSE 82; RESP 18; TEMP 36.2; O2SAT 99
--- NOTE | 2020-05-20 12:05 | PM.OBPNVD ---
OB - PN: Subj Subjective Date/time seen: 05/20/20 12:01 POD#1 Ming reports doing well today. She states pain is present but decreased with the pain meds. Her bleeding is light. She has tolerated regular diet. She has voided and passed gas. She has ambulated. She is pumping. Has a mild headache. She denies CP, vision changes, fever, chills, N/V, SOB, dizziness or palpitations. OB - PN: Obj Data Labs CBC & Chem 7: 05/20/20 08:44 05/20/20 06:29 Labs: Laboratory Results - last 24 hr 05/20/20 05/20/20 06:29 08:44 WBC 13.8 H RBC 3.69 L Hgb 11.1 L Hct 34.2 L MCV 92.7 MCH 30.1 MCHC 32.5 RDW 13.6 Plt Count 199 MPV 11.1 H Immature Gran % (Auto) 0.7 H Neut % (Auto) 67.3 Lymph % (Auto) 20.7 [place] % (Auto) 6.8 Eos % (Auto) 3.9 Baso % (Auto) 0.6 Lymph # (Auto) 2.85 [place] # (Auto) 0.9 H Eos # (Auto) 0.5 H Baso # (Auto) 0.1 Abs Immat Gran (auto) 0.09 H Absolute Neuts (auto) 9.3 H Absolute Nucleated RBC 0.0 Nucleated RBC % 0.0 Sodium 137 Potassium 4.2 Chloride 111 H Carbon Dioxide 23 Anion Gap 3 L BUN 4 L Creatinine 0.50 L Estim Creat Clear Calc 159 Estimated GFR > 60 Glucose 95 Calcium 8.5 Total Bilirubin 0.4 AST 52 H ALT 30 Alkaline Phosphatase 171 H Total Protein 6.0 L Albumin 2.7 L OB - PN A/P Assessment and Plan (1) PIH ( induced hypertension): Qualifiers: Trimester: third trimester Qualified Code(s): O13.3 - Gestational [-induced] hypertension without significant proteinuria, third trimester Code(s): O13.9 - Gestational [-induced] hypertension without significant proteinuria, unspecified trimester Status: Acute (2) Placenta previa in third trimester: Code(s): O44.03 - Complete placenta previa NOS or without hemorrhage, third trimester Status: Acute (3) heart deceleration: Status: Acute (4) contractions: Code(s): O47.9 - False labor, unspecified Status: Acute (5) Vaginal bleeding during : Code(s): O46.90 - Antepartum hemorrhage, unspecified, unspecified trimester Status: Acute (6) S/P section: Code(s): Z98.891 - History of uterine scar from previous surgery Status: Acute Plan day: 1 Plan: routine care Comments: - meeting all milestones - possible d/c home tomorrow Time Spent With Patient Time: Total time spent is greater than 50% in coordination of care (as documented) at patient's floor/unit and/or counseling patient: Review of Systems Review of Systems: All systems reviewed & are unremarkable except as noted in HPI and below (HPI) Exam Const: General: cooperative, healthy appearing, comfortable and no acute distress Resp: Effort & Inspection: normal respiratory effort and able to speak in complete sentences Auscultation: clear to auscultation bilaterally Cardio: Rate: regular rate GI: Inspection: non-distended and incision (pfannenstiel incision covered w/ clean dressing) GI Palp: Yes abdominal tenderness (appropriate) and Yes Soft to palpation Auscultation: normal bowel sounds : Other: fundus firm Skin: General skin exam: normal color Neuro: General: patient oriented x3 Extrem: General: normal to inspection Psych: Appearance: grossly normal Affect: normal affect Attitude: cooperative
[2020-05-20] MEDS: SIMETHICONE 80 MG TAB.CHEW PO (15:39)
[2020-05-20] MEDS: HYDROcodone/acetaminophen (*CRX) 10-325 MG TABLET 1 TAB PO (15:39)
[2020-05-20] MEDS: IBUPROFEN 600 MG TABLET PO ×2 (15:40→22:20)
[2020-05-20 19:30] VITALS: BP 113/74; PULSE 86; RESP 16; TEMP 36.8; O2SAT 99
[2020-05-21 07:55] VITALS: BP 122/77; PULSE 79; RESP 18; TEMP 36.9; O2SAT 100
[2020-05-21] MEDS: DOCUSATE SODIUM 100 MG CAPSULE PO (08:32)
[2020-05-21] MEDS: FAMOTIDINE 20 MG TABLET PO (08:32)
[2020-05-21] MEDS: MULTIVIT/MIN/PREN/FOL AC/IRON TABLET 1 TAB PO (08:32)
[2020-05-21] MEDS: HYDROcodone/acetaminophen (*CRX) 5-325 MG TABLET 1 TAB PO (08:32)
[2020-05-21] MEDS: IBUPROFEN 600 MG TABLET PO (08:33)
--- NOTE | 2020-05-21 08:35 | PC.NURSE ---
Patient instructed on viewing the discharge video Mother & Baby Care, The First Two Weeks . Patient was given the opportunity and encouraged to ask questions. Patient verbalized understanding of information shared and has been given the mother/baby guide for home reference.
--- NOTE | 2020-05-21 09:43 | PC.NURSE ---
Mother verbalizes she is able to go forward with pumping and bottle feeding at home per patient's choice. She denies any nipple discomfort, is feeding as required and waking infant to feed if needed. has had an adequate amount of bottle feedings with formula. Infant is currently meeting outcomes for weight, output, jaundice and feeding frequencies. Mother states she feels confident to continue pumping at home. Reviewed transition to breast milk, signs of adequate intake, and engorgement/relief. Instructed to call ICP if intake/output less than required. Reviewed community resources on the [employer] website and in the Mom/Baby guide. Information on outpatient services provided. Mother has no further questions at this time. Breast pump at bedside, mom pumping every 3 hours. Reviewed breast pump care and usage, pumping schedule, nipple care, and collection and storage of breast milk. Encouraged [id number], breast massage and manual expression to stimulate supply. Patient states she has the correct flange size, placement and draw and denies needing to have this assessed. Patient verbalizes and demonstrates understanding of instructions.
[2020-05-21] MEDS: MEASLES,MUMPS,RUBELLA VACCINE 0.5 ML VIAL SUB-Q (11:40)
[2020-05-22 09:44] VITALS: BP 112/65; PULSE 76; RESP 20; TEMP 36.6; O2SAT 99
--- NOTE | 2020-05-25 10:07 | PM.OBDSVD ---
DS: Admitting Diagnosis Admitting Diagnosis Admitting Diagnosis: vaginal bleeding DS: Discharge Diagnosis Discharge Diagnosis (1) S/P section: Code(s): Z98.891 - History of uterine scar from previous surgery Status: Acute (2) Asthma: Code(s): J45.909 - Unspecified asthma, uncomplicated Status: Acute (3) PIH ( induced hypertension): Qualifiers: Trimester: third trimester Qualified Code(s): O13.3 - Gestational [-induced] hypertension without significant proteinuria, third trimester Code(s): O13.9 - Gestational [-induced] hypertension without significant proteinuria, unspecified trimester Status: Acute (4) Placenta previa in third trimester: Code(s): O44.03 - Complete placenta previa NOS or without hemorrhage, third trimester Status: Acute (5) heart deceleration: Status: Acute (6) Vaginal bleeding during : Code(s): O46.90 - Antepartum hemorrhage, unspecified, unspecified trimester Status: Acute OB - DS: Summary OB Procedures : NST, PIH Mgmt, Ultrasound, PTL Mgmt and Other (inpatient admissions for bleeding w/ placenta previa) OB Procedures Intrapartum: low cervical, transverse OB Procedures: : None Peripartum Data Delivery Method: Section Procedures: Procedures Operation Date: 05/19/20 12:30 Actual Procedures Side Surgeon p Primary Section Marianela Judge MD complications: none [place] 1: Gender: Female Disposition of : home Status at Discharge Functional status at discharge: independent ambulation Overall status at discharge: patient is back to baseline Time Spent with Patient Time attestation: Total time spent providing and/or coordinating discharge services: Time spent: Less than 30 minutes Exam Const: General: cooperative, healthy appearing, comfortable and no acute distress Resp: Effort & Inspection: normal respiratory effort and able to speak in complete sentences Auscultation: clear to auscultation bilaterally Cardio: Rate: regular rate GI: Inspection: non-distended and incision (pfannenstiel incision covered w/ clean dressing) GI Palp: Yes abdominal tenderness and Yes Soft to palpation Auscultation: normal bowel sounds : Other: fundus firm at umbilicus Skin: General skin exam: normal color Neuro: General: patient oriented x3 Extrem: General: normal to inspection Psych: Appearance: grossly normal Affect: normal affect Attitude: cooperative DS: Data Data Completed and Pending Completed studies during hospitalization: Pending at discharge 05/19/20 14:48 Surgical [PTH] Routine Discharge Plan Discharge Attending physician on discharge: Marianela Judge Consulting providers: Papa Turner Discharging Clinician: Marianela Judge Anticipated Discharge Date/Time: 05/21/20 12:38 Patient Disposition: Home, Self-Care Activity: follow weight bearing status and pelvic rest Diet: as tolerated and regular Discharge Instructions: Education: Mom and Baby Guide and Preeclampsia Handout Given to: Mother Follow-Up: Call your delivering provider's office for an appointment to be seen in: 1 Week Mom and baby should come to the [facility] for the follow-up appointment. Appointment Date/Time: May 22, 2020 at 10:00 am What to expect at your follow-up visit: Physical Assessment Call [phone] if you are unable to keep your appointment time. BREAST CARE: * Wear a snug supportive bra. * For engorgement discomfort: Breast Feeding: * Apply warm moist washcloths * Express milk as needed to relieve engorgement * Wear loose clothing ABDOMINAL INCISION: (if applicable) * Allow incision to air dry * Do NOT use lotions for powders on your incision * When showering, allow soap and water to run
== END 2020-05-21 13:20 | disposition home or self-care (01) | DRG 788 ==
LOC: ANHLDR 11:45 → ANHOB2 17:26
PROVIDERS: Admitting Provider Obstetrics & Gynecology; PCP Internal Medicine; Visit Provider Obstetrics & Gynecology
PROC: 10D00Z1 Extraction of Products of Conception, Low, Open Approach (ICD-10-PCS; CPT 59514; principal; 2020-05-19 12:30)
DX: O13.4 Gestational [pregnancy-induced] hypertension without significant proteinuria, complicating childbirth (principal); O44.13 Complete placenta previa with hemorrhage, third trimester; O76 Abnormality in fetal heart rate and rhythm complicating labor and delivery; Z3A.35 35 weeks gestation of pregnancy; Z37.0 Single live birth
CPT/HCPCS: 36415; 76819; 80053; 84112; 84550; 85025; 86592; 86703; 86850; 86900; 86901; 88307; 90710; 94640; 96360; 96361; A9270; C9803; G0378; G0379; G0432; J0131; J0690; J1200; J1885; J2274; J2370; J2405; J2590; J7120; U0003; U0005